=== PATIENT | female | born 1990 | race Hispanic/Latino ===

== ENCOUNTER → 2024-11-09 | Outpatient (CLI) | payer BC ==
--- NOTE | 2024-11-09 12:04 | HMCIMG ---
US TRANSVAGINAL NON-OB REASON: IRREGULAR MENSTRAUTION COMPARISON: None TECHNIQUE: Transvaginal pelvic sonogram was performed. FINDINGS: Uterus is 9.7 x 4.7 x 5.7 cm. Endometrium is 7 mm. There are no focal myometrial or endometrial masses. There are some small to both consistent cervix. Right ovary appears normal. Left ovary was not separately identified. There are no adnexal masses. There is no free fluid in the cul-de-sac. IMPRESSION: 1. Normal pelvic sonogram.
== END | disposition home or self-care (01) ==
LOC: RAH 10:32
PROVIDERS: ATTEND Internal Medicine
DX: N92.6 Irregular menstruation, unspecified (principal)
CPT/HCPCS: 76830